=== PATIENT | female | born 1975 | race Hispanic/Latino ===

== ENCOUNTER 2024-08-24 14:15 | Emergency (ER) | payer BC ==
[2024-08-24] MEDS ORDERED: Morphine 4 MG/ML VIAL ONE (15:07)
[2024-08-24] MEDS ORDERED: Ondansetron PF 4 MG/2 ML Vial ONE (15:07)
[2024-08-24] MEDS ORDERED: Ketorolac Tromethamine 30 MG (1 mL) VIAL ONE (16:05)
== END 2024-08-24 17:40 | disposition home or self-care (01) ==
LOC: ERS 14:15
DX: S92.492A Other fracture of left great toe, initial encounter for closed fracture (principal); S93.121A Dislocation of metatarsophalangeal joint of right great toe, initial encounter; M25.512 Pain in left shoulder; M79.10 Myalgia, unspecified site; I10 Essential (primary) hypertension; E11.9 Type 2 diabetes mellitus without complications; F17.210 Nicotine dependence, cigarettes, uncomplicated; V43.52XA Car driver injured in collision with other type car in traffic accident, initial encounter; Y93.89 Activity, other specified
CPT/HCPCS: 28630; 71045; 96374; 96375; J1885; J2272; J2405